=== PATIENT | female | born 1995 | race Caucasian/White ===

== ENCOUNTER 2023-02-03 16:45 | Inpatient (IN) | payer OTHER ==
[~2023-02-03] VITALS: Ht 172.7 cm; Wt 95.3 kg
[2023-02-03] MEDS ORDERED: MULTTAB20 PO (17:10)
[2023-02-03 17:13] VITALS: BP 118/86
[2023-02-03] MEDS ORDERED: HOME MED LIST COMPLETE! XX SCH (17:15)
[2023-02-03] MEDS ORDERED: PENICILLIN G POTASSIUM 5 MU IV 5 MU in D5W MINI-BAG PLUS 100 ML IV STA (17:21)
[2023-02-03] MEDS ORDERED: LACTATED RINGER'S 1000 ML IV STA (17:21)
[2023-02-03] MEDS ORDERED: TRANEXAMIC ACID INJection 1,000 MG in NS 100 ML IV PRN (17:25)
[2023-02-03] MEDS ORDERED: OXYTOCIN INJ 10UNITS/ML 1ML VIAL IM PRN (17:25)
[2023-02-03] MEDS ORDERED: OXYTOCIN DRIP 30 UNITS in IV 1 EA IV SCH (17:25)
[2023-02-03] MEDS ORDERED: CARBOPROST TROMETHAMINE 250 MCG/ML AMP IM PRN (17:25)
[2023-02-03] MEDS ORDERED: METHYLERGONOVINE MALEATE 0.2MG/ML 1ML VIAL IM PRN (17:25)
[2023-02-03] MEDS ORDERED: OXYTOCIN INJ 10UNITS/ML 1ML VIAL IV PRN (17:25)
[2023-02-03] MEDS ORDERED: LIDOCAINE 1% MDV 20ML VIAL INFIL PRN (17:25)
[2023-02-03] MEDS ORDERED: LR 1,000 ML IV SCH ×2 (17:25)
[2023-02-03] MEDS ORDERED: OXYTOCIN DRIP 30 UNITS in IV 1 EA IV PRN ×6 (17:25)
[2023-02-03 17:55] LABS: HEMATOCRIT 44.3 % (36.0-47.0); MEAN CORPUSCULAR HEMOGLOBIN 30.9 pg (27.0-33.0); MEAN CORPUSCULAR HGB CONC 33.9 g/dl (32.0-36.5); MEAN CORPUSCULAR VOLUME 91.3 fl (80.0-96.0); PLATELET COUNT, AUTOMATED 205 10^3/uL (150-450); RED BLOOD COUNT 4.85 10^6/uL (4.00-5.40); WHITE BLOOD COUNT 14.1 10^3/uL (4.0-10.0)
[2023-02-03] MEDS ORDERED: MOM 30ML SUSPENSION UDC PO PRN (19:10)
[2023-02-03] MEDS ORDERED: DIBUCAINE 1% OINTMENT 30GM TOP PRN (19:10)
[2023-02-03] MEDS ORDERED: RHOGAM 300MCG (1500IU) INJ IM SCH (19:10)
[2023-02-03 19:12] VITALS: BP 117/73
[2023-02-03 19:27] VITALS: BP 107/71
[2023-02-03 19:43] VITALS: BP 144/66
[2023-02-03 19:57] VITALS: BP 142/69
[2023-02-03 20:12] VITALS: BP 131/63
[2023-02-03 21:41] LABS: HIV 1&2 SCREEN NEGATIVE (NEGATIVE)
[2023-02-03] MEDS ORDERED: PEN G POT 3,000,000 UNIT/50 ML 3,000,000 UNIT in IV 1 EA IV SCH (22:00)
[2023-02-03] MEDS: IBUPROFEN 800 MG TAB PO PRN (22:41)
[2023-02-03] MEDS: DOCUSATE SODIUM 100MG CAPSULE PO PRN (22:41)
[2023-02-04 06:09] VITALS: BP 119/58
[2023-02-04] MEDS: PRENATAL VITAMINS CHEWABLE TABLET PO SCH (08:04)
[2023-02-04] MEDS: ACETAMINOPHEN 500 MG TAB PO PRN (08:05)
[2023-02-04] MEDS: IBUPROFEN 800 MG TAB PO PRN ×2 (12:11→21:41)
[2023-02-04 18:00] VITALS: BP 132/85
[2023-02-04] MEDS: DOCUSATE SODIUM 100MG CAPSULE PO PRN (21:40)
[2023-02-05] MEDS: ACETAMINOPHEN 500 MG TAB PO PRN ×2 (05:41→15:51)
[2023-02-05 06:00] VITALS: BP 127/65
[2023-02-05] MEDS: PRENATAL VITAMINS CHEWABLE TABLET PO SCH (08:05)
[2023-02-05] MEDS: IBUPROFEN 800 MG TAB PO PRN (08:06)
[2023-02-05] MEDS ORDERED: MEASLES,MUMPS,RUBELLA VACCINE INJ (MMR-II) SC.IMMUN ONE (09:00)
[2023-02-05 17:52] VITALS: BP 120/60
== END 2023-02-05 21:00 | disposition home or self-care (01) | DRG 807 ==
LOC: M LDO 16:45 → M LDI 17:26 → M OBS 02-04 04:22
PROVIDERS: ADMIT Obstetrics & Gynecology; ATTEND Obstetrics & Gynecology
PROC: 10E0XZZ Delivery of Products of Conception, External Approach (ICD-10-PCS; principal; 2023-02-03)
PROC: 0KQM0ZZ Repair Perineum Muscle, Open Approach (ICD-10-PCS; 2023-02-03)
DX: O99.284 Endocrine, nutritional and metabolic diseases complicating childbirth (principal); Z37.0 Single live birth; Z3A.39 39 weeks gestation of pregnancy; O26.00 Excessive weight gain in pregnancy, unspecified trimester; O70.1 Second degree perineal laceration during delivery